=== PATIENT | female | born 1980 | race African-American/Black ===

== ENCOUNTER 2017-07-06 20:48 | Emergency (ER) | payer SELFPAY ==
[~2017-07-06] VITALS: Ht 172.7 cm; Wt 170.0 kg
[~2017-07-06 20:48] MED LIST: LISINOPRIL
[2017-07-07] MEDS ORDERED: LISINOPRIL 20MG TABLET PO ONE (01:15)
[2017-07-07 02:40] VITALS: BP 156/105
== END 2017-07-07 03:20 | disposition home or self-care (01) ==
LOC: ER 22:20
DX: J06.9 Acute upper respiratory infection, unspecified (principal); I10 Essential (primary) hypertension
CPT/HCPCS: 71045; 81025; 87070; 87430; 99285; Z7610

== ENCOUNTER 2020-07-30 14:01 | Emergency (ER) | payer MEDICAID ==
[~2020-07-30] VITALS: Ht 162.6 cm; Wt 120.0 kg
[2020-07-30] MEDS ORDERED: SODIUM CHLORIDE 0.9% 1,000 ML IV ONE (16:00)
[2020-07-30] MEDS ORDERED: KETOROLAC 30MG/ML VIAL IV ONE (16:00)
[2020-07-30 16:05] LABS: HEMATOCRIT. 32.1 % (36.0-48.0); HEMOGLOBIN. 10.8 g/dL (12.0-16.0); MEAN CORPUSCULAR VOLUME 74.8 fL (81.0-99.0); MEAN PLATELET VOLUME 7.3 fl (7.4-10.4); PLATELET 268 x1000/uL (130-400); RED CELL DISTRIBUTION WIDTH 16.9 % (11.6-14.6)
[2020-07-30 16:09] LABS: CHLORIDE 102 mEq/L (98-107)
[2020-07-30 16:20] LABS: B-HCG QUANTITATIVE < 1 mIU/mL (<3)
[2020-07-30 17:12] LABS: PLATELET ESTIMATE NORMAL
[2020-07-30 21:10] LABS: CLARITY URINE CLEAR (CLEAR); COLOR URINE YELLOW (YELLOW); KETONES URINE NEGATIVE (NEGATIVE); LEUKOCYTE ESTERASE URINE TRACE (NEGATIVE); NITRITE URINE POSITIVE (NEGATIVE); OCCULT BLOOD URINE 1+ (NEGATIVE); PH URINE 5.5 (4.5-8.0); PROTEIN URINE NEGATIVE (NEGATIVE); SPECIFIC GRAVITY URINE 1.012 (1.005-1.030)
[2020-07-30] MEDS ORDERED: NITR-87 MT (21:54)
[2020-07-30 23:45] VITALS: BP 105/62
== END 2020-07-30 23:54 | disposition home or self-care (01) ==
LOC: ER 14:01
DX: N93.9 Abnormal uterine and vaginal bleeding, unspecified (principal); F12.10 Cannabis abuse, uncomplicated; I10 Essential (primary) hypertension; Z90.49 Acquired absence of other specified parts of digestive tract
CPT/HCPCS: 36415; 76830; 76856; 80053; 81003; 84702; 85025; 86850; 86900; 86901; 96361; 96374; 99285; J1885; J7030; Z7610

== ENCOUNTER 2021-04-26 14:50 | Emergency (ER) | payer MEDICAID ==
[~2021-04-26] VITALS: Ht 162.6 cm; Wt 109.0 kg
[~2021-04-26 14:50] MED LIST changes: +NITR-87 MT
[2021-04-26] MEDS ORDERED: IBUPROFEN 600MG TABLET PO ONE (15:30)
[2021-04-26] MEDS ORDERED: ACETAMINOPHEN 325MG TABLET PO ONE (15:30)
[2021-04-26] MEDS ORDERED: HYDR-4001 MT (16:49)
[2021-04-26 17:44] VITALS: BP 127/76
== END 2021-04-26 17:51 | disposition home or self-care (01) ==
LOC: ER 14:50
DX: S82.831A Other fracture of upper and lower end of right fibula, initial encounter for closed fracture (principal); Z90.49 Acquired absence of other specified parts of digestive tract; F12.10 Cannabis abuse, uncomplicated; I10 Essential (primary) hypertension; W01.0XXA Fall on same level from slipping, tripping and stumbling without subsequent striking against object, initial encounter; Y93.89 Activity, other specified; Y92.89 Other specified places as the place of occurrence of the external cause; Y99.8 Other external cause status
CPT/HCPCS: 29515; 73562; 73590; 73610; 73630; 99284

== ENCOUNTER 2022-05-30 07:40 | Emergency (ER) | payer MEDICAID ==
[~2022-05-30] VITALS: Ht 162.6 cm; Wt 104.0 kg
[~2022-05-30 07:40] MED LIST changes: +HYDR-4001 MT
[2022-05-30 07:54] VITALS: BP 135/68
[2022-05-30] MEDS ORDERED: SODIUM CHLORIDE 0.9% 1,000 ML IV ONE (08:15)
[2022-05-30 09:18] LABS: BASOPHILS % 0.5 % (0.0-2.0); EOSINOPHILS % 0.6 % (0.0-5.0); HEMATOCRIT. 27.9 % (36.0-48.0); HEMOGLOBIN. 8.7 g/dL (12.0-16.0); LYMPHOCYTES % 33.4 % (20.0-50.0); MEAN CORPUSCULAR VOLUME 70.7 fL (81.0-99.0); MEAN PLATELET VOLUME 7.2 fl (7.4-10.4); MONOCYTES % 7.2 % (2.0-8.0); NEUTROPHILS % 58.3 % (40.0-76.0); PLATELET 296 x1000/uL (130-400); RED BLOOD CELL COUNT 3.95 mill/uL (4.2-5.4); RED CELL DISTRIBUTION WIDTH 19.4 % (11.6-14.6)
[2022-05-30 09:28] LABS: CHLORIDE 110 mEq/L (98-107)
[2022-05-30 09:42] LABS: HCG SCREEN NEGATIVE
[2022-05-30 13:41] LABS: CLARITY URINE CLOUDY (CLEAR); COLOR URINE DARK YELLOW (YELLOW); KETONES URINE NEGATIVE (NEGATIVE); LEUKOCYTE ESTERASE URINE 2+ (NEGATIVE); NITRITE URINE NEGATIVE (NEGATIVE); OCCULT BLOOD URINE NEGATIVE (NEGATIVE); PH URINE 6.5 (4.5-8.0); PROTEIN URINE 1+ (NEGATIVE); SPECIFIC GRAVITY URINE 1.037 (1.005-1.030)
== END 2022-05-30 16:00 | disposition home or self-care (01) ==
LOC: ER 07:40
DX: R55 Syncope and collapse (principal); F12.10 Cannabis abuse, uncomplicated
CPT/HCPCS: 36415; 80053; 81003; 84484; 84703; 85025; 93005; 96360; 99284; J7030; Z7610